=== PATIENT | female | born 1960 | race Caucasian/White ===

== ENCOUNTER 2020-05-01 12:52 | Observation (INO) | payer MEDICARE, OTHER ==
[~2020-05-01] VITALS: Ht 165.1 cm; Wt 99.3 kg
[2020-05-01 13:30] LABS: HEMOGLOBIN 15.5 gm/dl (12.3-15.3); RED BLOOD COUNT 4.84 M/UL (4.00-5.10); WHITE BLOOD COUNT 8.6 K/UL (4.5-11.0)
[2020-05-01 13:51] LABS: BUN/CREATININE RATIO 17 (0-10)
[2020-05-01] MEDS ORDERED: ZOLPIDEM TARTRAT5 MG PO (19:06)
[2020-05-01] MEDS ORDERED: PROMETHAZINE HC25 M1 PO (19:06)
[2020-05-01] MEDS ORDERED: FUROSEMIDE20 MG PO (19:07)
[2020-05-01] MEDS ORDERED: MELOXICAM15 MG PO (19:07)
[2020-05-01] MEDS ORDERED: DITROPAN 5 MG TA5 MG PO (19:07)
[2020-05-01] MEDS ORDERED: OXYCODONE-ACET1 EACH PO (19:07)
[2020-05-01] MEDS ORDERED: TENORMIN 50 MG50 MG PO (19:08)
[2020-05-01] MEDS ORDERED: PROTONIX 40 MG40 M1 PO (19:08)
[2020-05-01] MEDS ORDERED: POTASSIUM CHLO20 ME2 PO (19:08)
[2020-05-02] MEDS ORDERED: LISINOPRIL10 MG PO (12:43)
== END 2020-05-02 14:07 | disposition home or self-care (01) ==
LOC: ER1 12:52 → CDU 16:57 → MED SURG 4 18:47
PROVIDERS: Internal Medicine; ADMIT Internal Medicine
DX: R00.1 Bradycardia, unspecified (principal); I10 Essential (primary) hypertension; E66.01 Morbid (severe) obesity due to excess calories; F17.210 Nicotine dependence, cigarettes, uncomplicated; Z88.8 Allergy status to other drugs, medicaments and biological substances; Z79.899 Other long term (current) drug therapy; Z20.822 Contact with and (suspected) exposure to COVID-19; Z68.36 Body mass index [BMI] 36.0-36.9, adult
CPT/HCPCS: 0240U; 36415; 71045; 80053; 82550; 82553; 84439; 84443; 84484; 85025; 93005; 96374; 99285; G0378; J0461

== ENCOUNTER 2020-05-08 11:26 | Emergency (ER) | payer MEDICARE, OTHER ==
[~2020-05-08 11:26] MED LIST: DITROPAN 5 MG TA5 MG PO; FUROSEMIDE20 MG PO; LISINOPRIL10 MG PO; MELOXICAM15 MG PO; OXYCODONE-ACET1 EACH PO; POTASSIUM CHLO20 ME2 PO; PROMETHAZINE HC25 M1 PO; PROTONIX 40 MG40 M1 PO; TENORMIN 50 MG50 MG PO; ZOLPIDEM TARTRAT5 MG PO
[2020-05-08 13:16] LABS: HEMOGLOBIN 15.4 gm/dl (12.3-15.3); RED BLOOD COUNT 4.82 M/UL (4.00-5.10); WHITE BLOOD COUNT 8.9 K/UL (4.5-11.0)
[2020-05-08 13:32] LABS: BUN/CREATININE RATIO 15 (0-10)
[2020-05-08] MEDS ORDERED: HYDRALAZINE HCL25 MG PO (18:46)
== END 2020-05-08 19:00 | disposition home or self-care (01) ==
LOC: ER1 11:26
PROVIDERS: Physician Assistant Medical
DX: I10 Essential (primary) hypertension (principal); R00.1 Bradycardia, unspecified; R55 Syncope and collapse; I25.10 Atherosclerotic heart disease of native coronary artery without angina pectoris; E78.5 Hyperlipidemia, unspecified; M54.5 Low back pain; R32 Unspecified urinary incontinence; F17.210 Nicotine dependence, cigarettes, uncomplicated; Z90.710 Acquired absence of both cervix and uterus; Z88.8 Allergy status to other drugs, medicaments and biological substances
CPT/HCPCS: 71045; 80053; 82550; 82553; 83874; 83880; 84439; 84443; 84484; 85025; 85610; 93005; 99284

== ENCOUNTER → 2020-05-19 | Outpatient (CLI) | payer MEDICARE, OTHER ==
[~2020-05-19] MED LIST changes: +HYDRALAZINE HCL25 MG PO
== END ==
LOC: HEART 5 14:37
DX: R00.1 Bradycardia, unspecified (principal)

== ENCOUNTER → 2020-07-30 | Outpatient (CLI) | payer MEDICARE, OTHER | LOC: HEART 5 13:31 | DX: I10 Essential (primary) hypertension (principal); R06.02 Shortness of breath; I08.3 Combined rheumatic disorders of mitral, aortic and tricuspid valves | CPT/HCPCS: 93306 ==